=== PATIENT | female | born 1960 | race Caucasian/White ===

== ENCOUNTER 2021-01-05 09:09 | Emergency (ER) | payer OTHER | END 2021-01-05 10:10 | disposition home or self-care (01) | LOC: ER1 09:09 | DX: S63.502A Unspecified sprain of left wrist, initial encounter (principal); W01.0XXA Fall on same level from slipping, tripping and stumbling without subsequent striking against object, initial encounter | CPT/HCPCS: 73110; 99283 ==

== ENCOUNTER → 2021-08-14 | Outpatient (CLI) | payer OTHER | LOC: LAB 10:18 | DX: Z20.822 Contact with and (suspected) exposure to COVID-19 (principal); R22.2 Localized swelling, mass and lump, trunk | CPT/HCPCS: U0002 ==

== ENCOUNTER → 2021-10-27 | Outpatient (CLI) | payer OTHER ==
[2021-10-27 09:35] LABS: HEMOGLOBIN 13.7 gm/dl (12.3-15.3); RED BLOOD COUNT 4.73 M/UL (4.00-5.10); WHITE BLOOD COUNT 7.9 K/UL (4.5-11.0)
== END ==
LOC: LAB 09:13
PROVIDERS: Physician Assistant
DX: M79.642 Pain in left hand (principal); R22.1 Localized swelling, mass and lump, neck
CPT/HCPCS: 73130; 85025